=== PATIENT | female | born 1995 | race Two or more races ===

== ENCOUNTER 2022-11-11 14:34 | Inpatient (IN) | payer OTHER ==
[~2022-11-11] VITALS: Ht 157.5 cm; Wt 58.1 kg
[~2022-11-11 14:34] MED LIST: ZANTAC300 MG PO; ZOFRAN4 MG PO
--- NOTE | 2022-11-11 15:18 | NUR ---
PACIENTE FEMENINA ALERTA Y ORIENTADA X3, REFIERE DOLOR PELVICO HACE 2 [place] Y TIENE 6 SEMANAS DE EMBARAZO, TAMBIEN VERBALIZA TENER UN POCO DE SAMGRADO, ZHANG DOCTOR STEVEN.
--- NOTE | 2022-11-11 16:22 | NUR ---
EVALUA PTE. SE EDUCA SOBRE [place] MEDICO, REFIERE COMPRENDER. SE REALIZAN MUESTRAS DE LABORATORIO BAJO MEDIDAS ASEPTICAS. SE NOTIFICA SONOGRAMA. PTE MANEJADA POR . PENDIENTE RE-EVALUACION MEDICA.
== END 2022-11-12 19:00 | disposition home or self-care (01) | DRG 770 ==
LOC: ER 14:34 → SEC-K 19:54 → O/R 19:54
PROVIDERS: General Practice; ADMIT Specialist; ATTEND Specialist
PROC: BU4CZZZ Ultrasonography of Uterus and Ovaries (ICD-10-PCS; 2022-11-11)
PROC: 10D17ZZ Extraction of Products of Conception, Retained, Via Natural or Artificial Opening (ICD-10-PCS; principal; 2022-11-12 11:45)
DX: O02.1 Missed abortion (principal); Z20.822 Contact with and (suspected) exposure to COVID-19